=== PATIENT | female | born 1980 ===

== ENCOUNTER 2017-05-22 18:45 | Emergency (ER) | payer BC ==
[2017-05-22 19:20] VITALS: BP 126/91; PULSE 94; RESP 18; TEMP 99; O2SAT 100
[2017-05-22 21:01] LABS: BASO # 0.1 K/uL (0.0-0.2); EOS # 0.2 K/uL (0.0-0.7); EOS % 1.7 % (0.0-4.0); HEMOGLOBIN 13.4 g/dL (12.0-16.0); LYMPH # 1.8 K/uL (1.0-4.3); LYMPH % 20.3 % (20.0-40.0); MEAN CELL VOLUME 84.9 fl (81.0-99.0); MEAN CORPUSCULAR HEMOGLOBIN 28.2 pg (27.0-31.0); MEAN CORPUSCULAR HGB CONC 33.2 g/dL (33.0-37.0); MEAN PLATELET VOLUME 8.3 fl (7.2-11.7); MONO # 0.5 K/uL (0.0-0.8); MONO % 5.9 % (0.0-10.0); NEUT # 6.4 K/uL (1.8-7.0); NEUT % 71.1 % (50.0-75.0); NRBC % 0.1 % (0.0-0.0); RBC 4.77 Mil/uL (3.80-5.20); RED CELL DISTRIBUTION WIDTH 13.4 % (11.5-14.5)
[2017-05-22 21:16] LABS: ALB/GLOB RATIO 1.4 (1.0-2.1); ALBUMIN 4.5 g/dL (3.5-5.0); ALT/SGPT 42 U/L (9-52); AST/SGOT 38 U/L (14-36); BLOOD UREA NITROGEN 11 mg/dl (7-17); CALCIUM 8.9 mg/dL (8.4-10.2); GFR AFRICAN-AMERICAN > 60; GFR NON-AFRICAN AMERICAN > 60; LIPASE 130 U/L (23-300)
--- NOTE | 2017-05-22 21:19 | ED PDOC ---
HPI: Abdomen Time Seen by Provider: 05/22/17 19:38 Chief Complaint (Nursing): GI Problem Chief Complaint (Provider): Abdominal pain History Per: Patient History/Exam Limitations: no limitations Onset/Duration Of Symptoms: Days (x5) Current Symptoms Are (Timing): Intermittent Episodes Additional Complaint(s): Courtney Juares is a 36 year old female with previous medical history of cervical disc herniation and chronic neck pain, who presents to the emergency department with epigastric pain associated with vomiting and nausea ongoing for 5 days. Denied any fever, chills, or diarrhea. Of note, patient also complains of dull facial pain associated with mild frontal headache, swelling around her left eye, and runny nose since yesterday morning. Denied any discharge from eyes, fever, chills, or eye pain. Patient stated she had taken Advil for pain relief with little improvements. Past Medical History Reviewed: Historical Data, Nursing Documentation, Vital Signs Vital Signs: Last Vital Signs Temp 99.0 F 05/22/17 19:15 Pulse 94 H 05/22/17 19:15 Resp 18 05/22/17 19:15 BP 126/91 H 05/22/17 19:15 Pulse Ox 100 05/22/17 21:23 - Medical History PMH: Chronic Pain (neck) - Surgical History Surgical History: Hernia Repair (cervical disc) - Family History Family History: States: Unknown Family Hx - Social History Current smoker - smoking cessation education provided: No Alcohol: None Drugs: Denies - Allergies Allergies/Adverse Reactions: Allergies Allergy/AdvReac Type Severity Reaction Status Date / Time No Known Allergies Allergy Verified 07/03/15 09:28 Review of Systems ROS Statement: Except As Marked, All Systems Reviewed And Found Negative Constitutional: Negative for: Fever, Chills Eyes: Positive for: Redness (swelling around left eye). Negative for: Pain, Other (eye discharge) ENT: Positive for: Nose Discharge, Other (dull facial pain) Gastrointestinal: Positive for: Nausea, Vomiting, Abdominal Pain (epigastric). Negative for: Diarrhea Neurological: Positive for: Headache (mild frontal pain) Physical Exam - Reviewed Nursing Documentation Reviewed: Yes Vital Signs Reviewed: Yes - Physical Exam Appears: Positive for: Well, Non-toxic, No Acute Distress Head Exam: Positive for: ATRAUMATIC, NORMAL INSPECTION, NORMOCEPHALIC Skin: Positive for: Normal Color, Warm, Dry Eye Exam: Positive for: Normal appearance, EOMI, PERRL. Negative for: Nystagmus , Periorbital swelling, Periorbital tenderness ENT: Positive for: Normal ENT Inspection. Negative for: Sinus Pain/Drainage, Nasal Congestion Neck: Positive for: Normal, Painless ROM, Supple Cardiovascular/Chest: Positive for: Regular Rate, Rhythm Respiratory: Positive for: Normal Breath Sounds. Negative for: Respiratory Distress Gastrointestinal/Abdominal: Positive for: Normal Exam, Bowel Sounds, Soft. Negative for: Tenderness, Mass, Guarding, Hernia Back: Positive for: Normal Inspection. Negative for: L CVA Tenderness, R CVA Tenderness Extremity: Positive for: Normal ROM. Negative for: Tenderness, Pedal Edema, Deformity Neurologic/Psych: Positive for: Alert, roll tension tester II-XII, Oriented - Laboratory Results Result Diagrams: 05/22/17 20:48 05/22/17 20:48 - ECG O2 Sat by Pulse Oximetry: 100 (RA) Pulse Ox Interpretation: Normal - Progress Re-evaluation Time: 21:31 Condition: Re-examined, Improved Medical Decision Making Medical Decision Making: Initial Impression: Epigastric pain; Facial pain Differential diagnosis: Gastritis; UTI; R/O ; headache; sinusitis; migranes; tumors; acute kidney failure Initial Plan: * CT head without contrast * Labs * Lipase * Urine dipstick * Urine * Re-evaluation Scribe Attestation: Documented by Jina Porter, acting as a scribe for Claudia Ponce MD. Provider Scribe Attestation: All medical record entries made by the Scribe were at my direction and personally dictated by me. I have reviewed the chart and agree that the record accurately reflects my personal performance of the history, physical exam, medical decision making, and the department course for this patient. I have also personally directed, reviewed, and agree with the discharge instructions and disposition. Disposition - Clinical Impression Clinical Impression: Headache, Nausea, Eye swelling, left, Left against medical advice - Patient ED Disposition Is Patient to be Admitted: No Doctor Will See Patient In The: Office Counseled Patient/Family Regarding: Studies Performed, Diagnosis, Need For Followup - Disposition Referrals: Your, PCP [Other] Disposition: Routine/Home Disposition Time: 21:33 Condition: GOOD Additional Instructions: You are leaving against medical advice for CT head. Return for worsening. Follow up with your PCP in 2-3 days. Instructions: General Headache (ED), Against Medical Advice (ED)
== END 2017-05-22 22:06 | disposition left against medical advice (07) ==
LOC: H.ER 18:45
DX: R51 Headache (principal); R11.0 Nausea; R22.0 Localized swelling, mass and lump, head